=== PATIENT | male | born 1985 | race Caucasian/White ===

== ENCOUNTER 2016-11-22 08:53 | Emergency (ER) | payer OTHER ==
[~2016-11-22] VITALS: Ht 188 cm; Wt 97.7 kg
[2016-11-22] MEDS ORDERED: FLEXERIL10 MG PO (10:13)
[2016-11-22] MEDS ORDERED: NAPROSYN500 MG PO (10:13)
[2016-11-22 10:33] VITALS: BP 134/93
== END 2016-11-22 10:34 | disposition home or self-care (01) ==
LOC: EME 08:53
DX: S16.1XXA Strain of muscle, fascia and tendon at neck level, initial encounter (principal); V44.5XXA Car driver injured in collision with heavy transport vehicle or bus in traffic accident, initial encounter; Y92.410 Unspecified street and highway as the place of occurrence of the external cause; E10.9 Type 1 diabetes mellitus without complications; F17.200 Nicotine dependence, unspecified, uncomplicated
CPT/HCPCS: 72040; 99281; 99284

== ENCOUNTER 2017-07-11 14:32 | Inpatient (IN) | payer OTHER ==
[~2017-07-11] VITALS: Ht 188 cm; Wt 85.2 kg
[~2017-07-11 14:32] MED LIST: FLEXERIL10 MG PO; NAPROSYN500 MG PO
[2017-07-11 15:05] LABS: HEMATOCRIT 42.3 % (38.0-50.0); HEMOGLOBIN 15.4 G/DL (12.5-16.6); MCH 29.2 PG (29.0-34.0); MCHC 36.4 G/DL (30.0-36.0); MCV 80.3 FL (86-99); PLATELET COUNT 258 K/uL (156-360); RBC DIS.WIDTH-CV 12.7 % (11.8-14.6); RBC DIS.WIDTH-SD 36.6 % (39-53); RED BLOOD COUNT 5.27 M/uL (4.00-5.50); WHITE BLOOD COUNT 8.7 K/uL (4.1-10.2)
[2017-07-11 15:11] LABS: ALBUMIN 4.3 g/dL (3.2-4.8)
[2017-07-11 15:12] LABS: CHLORIDE 96 mEq/L (99-109); POTASSIUM 4.1 mEq/L (3.7-5.4); SODIUM 133 mEq/L (136-147)
[2017-07-11 15:14] LABS: GLUCOSE 309 mg/dL (70-99); TOTAL PROTEIN 7.3 g/dL (6.4-8.3)
[2017-07-11 15:16] LABS: TOTAL BILIRUBIN 0.5 mg/dL (0.0-1.0)
[2017-07-11 15:18] LABS: ALKALINE PHOSPHATASE 122 IU/L (3-129); CREATININE 2.2 mg/dL (0.6-1.3); GFR ESTIMATE (CALCULATED) 38 mL/min/ (58.99-99999)
[2017-07-11 15:19] LABS: UREA NITROGEN (BUN) 16 mg/dL (9-23)
[2017-07-11 15:20] LABS: AST (GOT) 13 IU/L (2-34)
[2017-07-11 15:21] LABS: ALT (GPT) 18 IU/L (3-49)
[2017-07-11] MEDS ORDERED: INVEGA SUS156 MG/1 M IM (16:42)
[2017-07-11] MEDS ORDERED: LANTUS 3 M100 UNITS1 SC (16:49)
[2017-07-11] MEDS ORDERED: NOVOLOG MI100 UNIT/2 SC (16:52)
[2017-07-11] MEDS ORDERED: NOVOLOG PE100 UNITS/ SC (16:58)
[2017-07-11 19:13] LABS: BASOPHIL (%) 1.1 % (0-1); BASOPHIL COUNT 0.1 K/uL (0-0.1); EOSINOPHIL (%) 2.2 % (0-5); EOSINOPHIL COUNT 0.2 K/uL (0-0.3); HEMATOCRIT 38.8 % (38.0-50.0); HEMOGLOBIN 14.3 G/DL (12.5-16.6); IMMATURE GRANULOCYTE (%) 0.4 % (0.0-0.7); LYMPHOCYTE (%) 27.6 % (15-42); LYMPHOCYTE COUNT 2.8 K/uL (1.0-2.8); MCH 29.4 PG (29.0-34.0); MCHC 36.9 G/DL (30.0-36.0); MCV 79.8 FL (86-99); MONOCYTE (%) 10.4 % (3-12); NEUTROPHIL (%) 58.3 % (45-76); NEUTROPHIL COUNT 5.8 K/uL (1.8-6.4); PLATELET COUNT 266 K/uL (156-360); RBC DIS.WIDTH-CV 12.7 % (11.8-14.6); RBC DIS.WIDTH-SD 36.1 % (39-53); RED BLOOD COUNT 4.86 M/uL (4.00-5.50)
[2017-07-11 19:26] LABS: CHLORIDE 97 mEq/L (99-109); POTASSIUM 4.4 mEq/L (3.7-5.4); SODIUM 132 mEq/L (136-147)
[2017-07-11 19:31] LABS: PHOSPHORUS 2.4 mg/dL (2.5-4.9)
[2017-07-11 19:32] LABS: GFR ESTIMATE (CALCULATED) 42 mL/min/ (58.99-99999)
[2017-07-11 19:33] LABS: UREA NITROGEN (BUN) 15 mg/dL (9-23)
[2017-07-11 19:34] LABS: GLUCOSE 470 mg/dL (70-99)
[2017-07-11 20:20] VITALS: BP 119/80
[2017-07-11 21:00] VITALS: BP 99/61
[2017-07-11 21:41] LABS: GLUCOSE 305 mg/dL (70-99)
[2017-07-11 22:00] VITALS: BP 103/66
[2017-07-11 23:00] VITALS: BP 105/66
[2017-07-12] VITALS (16 sets, daily range): BP systolic 89–159; BP diastolic 49–86
[2017-07-12 00:42] LABS: CHLORIDE 105 mEq/L (99-109); POTASSIUM 3.5 mEq/L (3.7-5.4); SODIUM 134 mEq/L (136-147)
[2017-07-12 00:44] LABS: GLUCOSE 174 mg/dL (70-99)
[2017-07-12 00:47] LABS: PHOSPHORUS 1.6 mg/dL (2.5-4.9)
[2017-07-12 00:48] LABS: CREATININE 1.7 mg/dL (0.6-1.3); GFR ESTIMATE (CALCULATED) 51 mL/min/ (58.99-99999)
[2017-07-12 00:49] LABS: UREA NITROGEN (BUN) 11 mg/dL (9-23)
[2017-07-12 05:21] LABS: CHLORIDE 107 mEq/L (99-109); POTASSIUM 4.5 mEq/L (3.7-5.4); SODIUM 132 mEq/L (136-147)
[2017-07-12 05:23] LABS: GLUCOSE 143 mg/dL (70-99)
[2017-07-12 05:26] LABS: CREATININE 1.7 mg/dL (0.6-1.3); GFR ESTIMATE (CALCULATED) 51 mL/min/ (58.99-99999)
[2017-07-12 05:27] LABS: UREA NITROGEN (BUN) 11 mg/dL (9-23)
[2017-07-12 05:29] LABS: PHOSPHORUS 2.9 mg/dL (2.5-4.9)
[2017-07-12 05:40] LABS: APPEARANCE CLEAR ((CLEAR)); BILIRUBIN NEGATIVE; BLOOD NEGATIVE; COLOR YELLOW ((YELLOW)); GLUCOSE (STRIP) >=500; KETONES 80; LEUKOCYTES NEGATIVE; NITRITE NEGATIVE; PROTEIN (STRIP) NEGATIVE; SPECIFIC GRAVITY 1.017 (1.000-1.030); UCUL ADDED? NO; UROBILINOGEN 0.2 MG/DL (0.2-1.0)
[2017-07-12 08:24] LABS: CHLORIDE 103 MEQ/L (99-109); CREATININE 1.3 MG/DL (0.6-1.3); GFR ESTIMATE (CALCULATED) > 59 mL/min/ (58.99-99999); GLUCOSE 179 mg/dL (70-99); PHOSPHORUS 2.9 mg/dL (2.5-4.9); POTASSIUM 3.8 MEQ/L (3.7-5.4); SODIUM 133 MEQ/L (136-147); UREA NITROGEN (BUN) 11 mg/dL (9-23)
[2017-07-12 12:40] LABS: CHLORIDE 103 MEQ/L (99-109); CREATININE 1.1 MG/DL (0.6-1.3); GFR ESTIMATE (CALCULATED) > 59 mL/min/ (58.99-99999); GLUCOSE 241 mg/dL (70-99); PHOSPHORUS 2.1 mg/dL (2.5-4.9); POTASSIUM 3.8 MEQ/L (3.7-5.4); SODIUM 133 MEQ/L (136-147); UREA NITROGEN (BUN) 12 mg/dL (9-23)
[2017-07-12 13:11] LABS: HEMOGLOBIN A1c (GLYCOHEMOGLOB) 15.1 % (Below 5.7)
[2017-07-13 00:25] VITALS: BP 95/59
[2017-07-13 06:23] LABS: PHOSPHORUS 3.3 mg/dL (2.5-4.9)
[2017-07-13 07:25] VITALS: BP 123/67
[2017-07-13 08:23] LABS: CHLORIDE 107 MEQ/L (99-109); CREATININE 0.9 MG/DL (0.6-1.3); GFR ESTIMATE (CALCULATED) > 59 mL/min/ (58.99-99999); GLUCOSE 242 mg/dL (70-99); POTASSIUM 3.7 MEQ/L (3.7-5.4); SODIUM 139 MEQ/L (136-147); UREA NITROGEN (BUN) 11 mg/dL (9-23)
[2017-07-13] MEDS ORDERED: LANTUS 3 M100 UNITS1 SC (12:06)
== END 2017-07-13 12:07 | disposition home or self-care (01) | DRG 638 ==
LOC: EME 14:32 → EDOF 18:07 → 4WEST 18:07 → ENRESERV 18:10 → 4WEST 20:23 → ENRESERV 07-12 14:06 → 5SOUTH 07-12 17:06
PROVIDERS: Emergency Medicine Emergency Medical Services; Family Medicine; Internal Medicine Critical Care Medicine
DX: E10.10 Type 1 diabetes mellitus with ketoacidosis without coma (principal); F17.200 Nicotine dependence, unspecified, uncomplicated; Z79.4 Long term (current) use of insulin; Z91.11 Patient's noncompliance with dietary regimen; N17.9 Acute kidney failure, unspecified; R79.89 Other specified abnormal findings of blood chemistry
CPT/HCPCS: 71045; 80048; 80048 91; 80053; 81003; 82010; 82947 91; 82948; 83036; 84100; 85025; 85027; 87641; 93005; 99281; 99285; J1815; J7030; J7050